=== PATIENT | male | born 1995 | race Caucasian/White ===

== ENCOUNTER 2017-10-06 18:55 | Emergency (ER) | payer OTHER ==
[~2017-10-06] VITALS: Ht 162.6 cm; Wt 172.4 kg
[2017-10-06] MEDS ORDERED: SINGULAIR10 MG (19:01)
== END 2017-10-06 22:31 | disposition home or self-care (01) ==
LOC: ER 18:55
DX: S00.83XA Contusion of other part of head, initial encounter (principal); W22.8XXA Striking against or struck by other objects, initial encounter; Y93.66 Activity, soccer; Y92.89 Other specified places as the place of occurrence of the external cause; Y99.8 Other external cause status

== ENCOUNTER 2018-02-01 07:58 | Emergency (ER) | payer OTHER ==
[~2018-02-01] VITALS: Ht 162.6 cm; Wt 170.1 kg
[~2018-02-01 07:58] MED LIST: SINGULAIR10 MG
== END 2018-02-01 14:26 | disposition home or self-care (01) ==
LOC: ER 07:58
DX: K29.70 Gastritis, unspecified, without bleeding (principal)

== ENCOUNTER 2019-02-19 16:41 | Emergency (ER) | payer OTHER ==
[~2019-02-19] VITALS: Ht 162.6 cm; Wt 190.5 kg
== END 2019-02-20 00:24 | disposition left against medical advice (07) ==
LOC: ER 16:41
DX: J45.998 Other asthma (principal)

== ENCOUNTER 2023-02-10 11:19 | Emergency (ER) | payer BC ==
[~2023-02-10] VITALS: Ht 162.6 cm; Wt 190.5 kg
[2023-02-10] MEDS ORDERED: FLUTICASONE-SA1 EAC4 IH (11:37)
[2023-02-10] MEDS ORDERED: BUPROPION XL150 MG PO (11:38)
[2023-02-10] MEDS ORDERED: OSEL75CA PO (14:16)
== END 2023-02-10 14:24 | disposition home or self-care (01) ==
LOC: ER 11:19
DX: J11.1 Influenza due to unidentified influenza virus with other respiratory manifestations (principal); R53.81 Other malaise; Z20.822 Contact with and (suspected) exposure to COVID-19; Z88.6 Allergy status to analgesic agent

== ENCOUNTER 2023-05-23 15:39 | Emergency (ER) | payer OTHER ==
[~2023-05-23] VITALS: Ht 162.6 cm; Wt 190.1 kg
[~2023-05-23 15:39] MED LIST changes: +BUPROPION XL150 MG PO; +FLUTICASONE-SA1 EAC4 IH; +OSEL75CA PO
== END 2023-05-23 17:54 | disposition home or self-care (01) ==
LOC: ER 15:39
DX: J45.909 Unspecified asthma, uncomplicated (principal); Z91.010 Allergy to peanuts; Z88.8 Allergy status to other drugs, medicaments and biological substances; Z91.018 Allergy to other foods

== ENCOUNTER 2024-09-08 16:17 | Emergency (ER) | payer OTHER ==
[~2024-09-08] VITALS: Ht 167.6 cm; Wt 179.2 kg
[2024-09-08] MEDS ORDERED: WELLBUTRIN XL300 MG (16:44)
[2024-09-08] MEDS ORDERED: LOSARTAN-HCTZ1 EAC1 (16:44)
[2024-09-08] MEDS ORDERED: FAMOTIDINE/PF 20 MG in 0.9 % SODIUM CHLORIDE 8 ML IV PUSH STA (17:06)
[2024-09-08] MEDS ORDERED: 0.9 % SODIUM CHLORIDE 1,000 ML IV SCH (17:15)
[2024-09-08] MEDS ORDERED: HYOSCYAMINE SULFATE 0.125 MG TAB.SUBL SL ONE (17:15)
[2024-09-08] MEDS ORDERED: ONDANSETRON HCL 2 MG/ML VIAL IV ONE (17:15)
[2024-09-08] MEDS ORDERED: HYOSCYAMINE SULFATE 0.125 MG TAB.SUBL ONE (17:16)
[2024-09-08] MEDS ORDERED: ONDANSETRON HCL 2 MG/ML VIAL ONE (17:16)
[2024-09-08] MEDS ORDERED: FAMOTIDINE/PF 20 MG/2 ML VIAL ONE (17:17)
[2024-09-08] MEDS ORDERED: METHYLPREDNISOLONE SOD SUCC 125 MG VIAL ONE (17:44)
[2024-09-08] MEDS ORDERED: METHYLPREDNISOLONE SOD SUCC 125 MG VIAL IV ONE (17:45)
[2024-09-08 18:50] LABS: HEMATOCRIT 50.9 % (39.0-48.0); HEMOGLOBIN 16.4 g/dL (13-16.00); MEAN CELL VOLUME 80.6 fL (80.0-100.00); MEAN CORPUSCULAR HGB CONC 32.3 g/dl (32.0-36.0); PLATELET COUNT 366 K/uL (150-450); RED BLOOD COUNT 6.31 M/uL (4.00-6.00); RED CELL DISTRIBUTION WIDTH 14.3 % (11.5-14.5)
[2024-09-08 19:19] LABS: ALBUMIN 4.8 gm/dL (3.4-5.0); BILIRUBIN TOTAL 1.58 mg/dL (0.3-1.2); CREATININE SERUM 1.13 mg/dL (0.70-1.30); GFR 77.27; GLOBULINA 4.2 G/DL (2.4-3.5); POTASSIUM 3.77 mEq/L (3.5-5.1)
[2024-09-08] MEDS ORDERED: KETOROLAC TROMETHAMINE 30 MG VIAL IV ONE (20:30)
[2024-09-08] MEDS ORDERED: METOCLOPRAMIDE HCL 10 MG in DEXTROSE 5 % IN WATER 50 ML IV ONE (20:30)
[2024-09-08] MEDS ORDERED: KETOROLAC TROMETHAMINE 60 MG VIAL IM ONE (20:36)
[2024-09-08] MEDS ORDERED: METOCLOPRAMIDE HCL 5 MG/ML VIAL ONE (20:37)
[2024-09-08] MEDS ORDERED: PEPCID AC20 MG PO (21:57)
[2024-09-08] MEDS ORDERED: CARAFATE1 GM PO (21:57)
[2024-09-08] MEDS ORDERED: ONDANSETRON ODT8 MG PO (21:57)
== END 2024-09-08 22:13 | disposition home or self-care (01) ==
LOC: ER 16:20
PROVIDERS: General Practice
DX: K29.70 Gastritis, unspecified, without bleeding (principal); Z91.010 Allergy to peanuts; Z88.8 Allergy status to other drugs, medicaments and biological substances; Z91.018 Allergy to other foods

== ENCOUNTER 2024-09-13 09:44 | Emergency (ER) | payer BC, OTHER ==
[~2024-09-13] VITALS: Ht 162.6 cm; Wt 176.4 kg
[~2024-09-13 09:44] MED LIST changes: +CARAFATE1 GM PO; +LOSARTAN-HCTZ1 EAC1; +ONDANSETRON ODT8 MG PO; +PEPCID AC20 MG PO; +WELLBUTRIN XL300 MG
[2024-09-13] MEDS ORDERED: ONDANSETRON HCL 2 MG/ML VIAL IV STA (10:56)
[2024-09-13] MEDS ORDERED: FAMOTIDINE/PF 20 MG in 0.9 % SODIUM CHLORIDE 8 ML IV PUSH STA (10:57)
[2024-09-13] MEDS ORDERED: ONDANSETRON HCL 2 MG/ML VIAL ONE (11:07)
[2024-09-13] MEDS ORDERED: FAMOTIDINE/PF 20 MG/2 ML VIAL ONE (11:07)
[2024-09-13] MEDS ORDERED: MEPERIDINE HCL/PF 50 MG/ML VIAL IM ONE (12:30)
[2024-09-13 12:51] LABS: HEMATOCRIT 50.3 % (39.0-48.0); HEMOGLOBIN 16.5 g/dL (13-16.00); MEAN CELL VOLUME 80.1 fL (80.0-100.00); MEAN CORPUSCULAR HEMOGLOBIN 26.3 pg (27.00-32.0); MEAN CORPUSCULAR HGB CONC 32.9 g/dl (32.0-36.0); PLATELET COUNT 407 K/uL (150-450); RED BLOOD COUNT 6.28 M/uL (4.00-6.00); RED CELL DISTRIBUTION WIDTH 13.5 % (11.5-14.5)
[2024-09-13 12:54] LABS: CALCIUM 9.5 mg/dL (8.5-10.1); CREATININE SERUM 1.03 mg/dL (0.70-1.30); GFR 85.99
[2024-09-13 13:03] LABS: POTASSIUM 2.97 mEq/L (3.5-5.1)
[2024-09-13] MEDS ORDERED: POTASSIUM CHLORIDE/D5-0.9%NACL 1,000 ML IV ONE (13:15)
== END 2024-09-13 21:32 | disposition home or self-care (01) ==
LOC: ER 09:47
PROVIDERS: Emergency Medicine
DX: K29.70 Gastritis, unspecified, without bleeding (principal); R10.9 Unspecified abdominal pain; J45.909 Unspecified asthma, uncomplicated; F32.89 Other specified depressive episodes; I10 Essential (primary) hypertension; Z91.018 Allergy to other foods; Z88.8 Allergy status to other drugs, medicaments and biological substances; K76.0 Fatty (change of) liver, not elsewhere classified

== ENCOUNTER 2025-05-29 12:15 | Inpatient (IN) | payer BC, OTHER ==
[~2025-05-29] VITALS: Ht 160 cm; Wt 181.4 kg
[2025-05-29] MEDS ORDERED: FLUVOXAMINE MA150 MG (12:50)
[2025-05-29] MEDS ORDERED: INTUNIV3 MG (12:50)
[2025-05-29] MEDS ORDERED: METHYLPREDNISOLONE SOD SUCC 125 MG VIAL IV ONE (14:00)
[2025-05-29] MEDS ORDERED: IPRATROPIUM BROMIDE 0.5 MG/2.5 ML AMPUL.NEB IH SCH (14:00)
[2025-05-29] MEDS ORDERED: LEVALBUTEROL HCL 1.25 MG/3 ML SOLUTION IH SCH ×2 (14:00→21:00)
[2025-05-29] MEDS ORDERED: 0.9 % SODIUM CHLORIDE 1,000 ML IV SCH (14:00)
[2025-05-29] MEDS ORDERED: FAMOTIDINE/PF 20 MG in 0.9 % SODIUM CHLORIDE 8 ML IV PUSH ONE (14:00)
[2025-05-29] MEDS ORDERED: LEVALBUTEROL HCL 1.25 MG/3 ML SOLUTION IH ONE ×3 (14:11→16:20)
[2025-05-29] MEDS ORDERED: IPRATROPIUM BROMIDE 0.5 MG/2.5 ML AMPUL.NEB IH ONE ×3 (14:11→16:21)
[2025-05-29 15:22] LABS: ABG PH 7.398 (7.35-7.45)
[2025-05-29 15:23] LABS: ABG PO2 82.8 mmHg (80-100); BICARBONATE 22.6 mmol/l (23-25); o2 21 %
[2025-05-29] MEDS ORDERED: METHYLPREDNISOLONE SOD SUCC 125 MG VIAL ONE (16:16)
[2025-05-29] MEDS ORDERED: FAMOTIDINE/PF 20 MG/2 ML VIAL ONE (16:16)
[2025-05-29 17:11] LABS: BASO % 1.2 % (0.1-1.2); EOS # 0.35 (0.04-0.54); EOS % 2.8 % (0.7-7.0); LYMPH # 3.70 (1.18-3.74); LYMPH % 29.6 % (19.3-53.1); MEAN PLATELET VOLUME 9.80 fl (9.4-12.4); MONO # 0.75 (0.24-0.82); MONO % 6.0 % (4.7-12.5); NEUT # 7.47 (1.56-6.13); NEUT % 59.7 % (34.0-71.1); RED CELL DISTRIBUTION WIDTH 13.2 % (11.6-14.4)
[2025-05-29 17:36] LABS: ALT/SGPT 33.0 U/L (12-78); AST/SGOT 19.0 U/L (15-37); BILIRUBIN TOTAL 1.02 mg/dL (0.3-1.2); BUN CREA RATIO 16.0 (7.0-25.0); CREATININE SERUM 0.95 mg/dL (0.70-1.30); GFR 93.73; GLOBULINA 3.8 G/DL (2.4-3.5); GLUCOSE FASTING 102.0 mg/dL (65-100); OSMOLALITY SERUM 279.0 MOSM/KG (275-295)
[2025-05-29 17:53] LABS: URINE APPEARANCE Clear; URINE BILIRRUBIN Negative (NEGATIVE); URINE BLOOD Negative; URINE COLOR Dark Yellow; URINE GLUCOSE Negative (NEGATIVE); URINE KETONE 15 (NEGATIVE); URINE LEUKOCYTE Negative; URINE NITRATE Negative; URINE PROTEIN Negative (NEGATIVE); URINE UROBILINOGEN 1.0 E.U./dl
[2025-05-29 17:57] LABS: URINE BACTERIA 50.4 uL (0.0-1933); URINE EPITHELIAL CELLS 3.5 uL (0.0-38.8); URINE WBC 4.7 uL (0.0-23.2)
[2025-05-29 17:58] LABS: URINE CAST 0.00 uL (0.0-1.40); URINE RBC 0.7 uL (0.0-20.8)
[2025-05-29 18:01] LABS: COVID-19 AG NEGATIVE (NEGATIVE)
[2025-05-29] MEDS ORDERED: MAGNESIUM SULFATE IN WATER 50 ML IV ONE (19:15)
[2025-05-29] MEDS ORDERED: MAGNESIUM SULFATE 50% 1,000 MG/2 ML VIAL ONE (19:28)
[2025-05-29] MEDS ORDERED: OSELTAMIVIR PHOSPHATE 75 MG CAPSULE PO SCH (20:40)
[2025-05-29] MEDS ORDERED: METHYLPREDNISOLONE SOD SUCC 40 MG VIAL IV SCH (20:40)
[2025-05-29] MEDS ORDERED: CEFTRIAXONE SODIUM 2,000 MG in 0.9 % SODIUM CHLORIDE 100 ML IV SCH (20:41)
[2025-05-29] MEDS ORDERED: AZITHROMYCIN 500 MG VIAL IV SCH (20:41)
[2025-05-29] MEDS ORDERED: FAMOTIDINE/PF 20 MG in 0.9 % SODIUM CHLORIDE 8 ML IV PUSH SCH (20:42)
[2025-05-29] MEDS ORDERED: ACETAMINOPHEN 325 MG TABLET PO PRN (20:45)
[2025-05-29] MEDS ORDERED: IPRATROPIUM/ALBUTEROL SULFATE 3 ML AMPUL.NEB IH SCH (20:45)
[2025-05-29] MEDS ORDERED: BENZONATATE 100 MG CAPSULE PO SCH (20:49)
[2025-05-29] MEDS ORDERED: ENOXAPARIN SODIUM 60 MG/0.6 ML SYRINGE SUBCUTANEO SCH (21:00)
[2025-05-29] MEDS ORDERED: GUAIFEN/DEXTROMETHORPHAN/PE 10 ML BLIST.PACK PO PRN (21:00)
[2025-05-29] MEDS ORDERED: LORATADINE 10 MG TABLET PO SCH (21:00)
[2025-05-29] MEDS ORDERED: FLUTICASONE PROPIONATE 50 MCG SPRAY NASAL SCH (21:00)
[2025-05-30 00:49] VITALS: BP 148/80
[2025-05-30 01:02] VITALS: BP 148/80; O2SAT 96
[2025-05-30 01:48] LABS: INR 1.07
[2025-05-30 02:02] LABS: CHOL HDL RATIO 4.0 (0-5.0); HDL 48.0 mg/dl (40-60); LDL 129.0 mg/dl (0-130); TSH 0.655 uIU/mL (0.358-3.74); VLDL 13.0 (0-39)
[2025-05-30] MEDS ORDERED: ACETAMINOPHEN 500 MG GEL..CAP PO PRN (07:30)
[2025-05-30 08:27] VITALS: BP 122/81; O2SAT 97
[2025-05-30] MEDS ORDERED: LACTOBACILLUS ACIDOPHILUS 1 CAP CAP PO SCH (09:00)
[2025-05-30 13:48] VITALS: O2SAT 97
[2025-05-30 16:31] VITALS: O2SAT 97
[2025-05-30] MEDS ORDERED: METHYLPREDNISOLONE SOD SUCC 40 MG VIAL IV SCH (17:00)
[2025-05-30 19:49] VITALS: O2SAT 96
[2025-05-30] MEDS ORDERED: MONTELUKAST SODIUM 10 MG TABLET PO SCH (20:31)
[2025-05-30] MEDS ORDERED: LEVALBUTEROL HCL 1.25 MG/3 ML SOLUTION IH SCH (21:00)
[2025-05-30] MEDS ORDERED: IPRATROPIUM BROMIDE 0.5 MG/2.5 ML AMPUL.NEB IH SCH ×2 (21:00)
[2025-05-31] MEDS ORDERED: IPRATROPIUM BROMIDE 0.5 MG/2.5 ML AMPUL.NEB IH SCH (01:00)
[2025-05-31] MEDS ORDERED: METHYLPREDNISOLONE SOD SUCC 40 MG VIAL IV SCH (01:00)
[2025-05-31] MEDS ORDERED: LEVALBUTEROL HCL 1.25 MG/3 ML SOLUTION IH SCH (01:00)
[2025-05-31 01:36] VITALS: O2SAT 97
[2025-05-31 02:01] VITALS: BP 136/73; O2SAT 98
[2025-05-31 05:53] VITALS: O2SAT 100
[2025-05-31 06:43] LABS: BASO % 0.1 % (0.1-1.2); EOS # 0.00 (0.04-0.54); EOS % 0.0 % (0.7-7.0); LYMPH # 1.47 (1.18-3.74); LYMPH % 8.1 % (19.3-53.1); MEAN PLATELET VOLUME 10.10 fl (9.4-12.4); MONO # 0.88 (0.24-0.82); MONO % 4.9 % (4.7-12.5); NEUT # 15.51 (1.56-6.13); NEUT % 86.0 % (34.0-71.1); RED CELL DISTRIBUTION WIDTH 13.7 % (11.6-14.4)
[2025-05-31 07:30] LABS: ALT/SGPT 33 U/L (12-78); AST/SGOT 16 U/L (15-37); BILIRUBIN TOTAL 0.69 mg/dL (0.3-1.2); BUN CREA RATIO 18 (7.0-25.0); CREATININE SERUM 0.96 mg/dL (0.70-1.30); GFR 92.60; GLOBULINA 3.2 G/DL (2.4-3.5); GLUCOSE FASTING 108 mg/dL (65-100); OSMOLALITY SERUM 280 MOSM/KG (275-295)
[2025-05-31 08:37] VITALS: BP 148/88; O2SAT 95
[2025-05-31] MEDS ORDERED: AZITHROMYCIN 500 MG VIAL IV ONE (09:18)
[2025-05-31 10:00] VITALS: O2SAT 99
[2025-05-31 14:08] VITALS: O2SAT 99
[2025-05-31] MEDS ORDERED: ZITHROMAX500 MG PO (15:44)
[2025-05-31] MEDS ORDERED: MEDROLPACK PO (15:44)
[2025-05-31] MEDS ORDERED: OSEL75CA PO (15:44)
[2025-05-31] MEDS ORDERED: IPRATROPIU0.2 MG/1 M IH (15:44)
[2025-05-31] MEDS ORDERED: XOPENEX CO1.25 MG/0. IH (15:44)
[2025-05-31] MEDS ORDERED: BENZONATATE100 MG PO (15:44)
== END 2025-05-31 17:08 | disposition home or self-care (01) | DRG 203 ==
LOC: ER 12:16 → MEDJ 20:45 → SEC-K 20:45 → MEDJ 21:49 → SEC-K 05-30 08:38 → MEDJ 05-30 12:25
PROVIDERS: General Practice; Internal Medicine Infectious Disease; ADMIT Internal Medicine; ATTEND Internal Medicine
PROC: 3E0F7GC Introduction of Other Therapeutic Substance into Respiratory Tract, Via Natural or Artificial Opening (ICD-10-PCS; principal; 2025-05-29)
PROC: 8E0ZXY6 Isolation (ICD-10-PCS; 2025-05-29)
PROC: 4A12X4Z Monitoring of Cardiac Electrical Activity, External Approach (ICD-10-PCS; 2025-05-29)
PROC: 4A033R1 Measurement of Arterial Saturation, Peripheral, Percutaneous Approach (ICD-10-PCS; 2025-05-29)
DX: J45.901 Unspecified asthma with (acute) exacerbation (principal); H66.93 Otitis media, unspecified, bilateral; J11.1 Influenza due to unidentified influenza virus with other respiratory manifestations; Z20.822 Contact with and (suspected) exposure to COVID-19